=== PATIENT | female | born 1990 | race Caucasian/White ===

== ENCOUNTER 2016-10-12 15:32 | Emergency (ER) | payer MEDICAID, OTHER ==
[2016-10-12 16:02] VITALS: BP 131/87
[2016-10-12] MEDS ORDERED: Ibuprofen TAB* 600 MG PO ONE (16:09)
--- NOTE | 2016-10-12 16:17 | UC ---
Lower Extremity/Ankle HPI - HPI Summary HPI Summary: 26 yo female fell going down stairs and injured right foot just prior to coming in unable to bear wt denies other injury - History of Current Complaint Chief Complaint: UCLowerExtremity Stated Complaint: RIGHT ANKLE INJURY S/P FALL Time Seen by Provider: 10/12/16 16:05 Hx Obtained From: Patient Hx Last Menstrual Period: 09/23/16 Onset/Duration: Sudden Onset Severity Initially: Moderate Severity Currently: Moderate Pain Intensity: 3 - worse with attempts to wt bear Pain Scale Used: 0-10 Numeric Aggravating Factor(s): Standing, Ambulation Alleviating Factor(s): Rest Able to Bear Weight: No - Allergies/Home Medications Allergies/Adverse Reactions: Allergies Allergy/AdvReac Type Severity Reaction Status Date / Time No Known Allergies Allergy Verified 08/29/16 09:57 PMH/Surg Hx/FS Hx/Imm Hx Previously Healthy: Yes Endocrine History Of: Denies: Diabetes Cardiovascular History Of: Denies: Hypertension, Pacemaker/ICD GI/ History Of: Denies: Renal Disease - Surgical History Surgical History: Yes Surgery Procedure, Year, and Place: c section x 3, T&A, WISDOM TEETH - Family History Known Family History: Positive: Respiratory Disease - Social History Alcohol Use: None Substance Use Type: None Smoking Status (MU): Never Smoked Tobacco Review of Systems Constitutional: Negative Skin: Negative Eyes: Negative ENT: Negative Respiratory: Negative Cardiovascular: Negative Gastrointestinal: Negative Genitourinary: Negative Motor: Negative Neurovascular: Negative Musculoskeletal: Arthralgia Neurological: Negative Psychological: Negative All Other Systems Reviewed And Are Negative: Yes Physical Exam Triage Information Reviewed: Yes Appearance: Well-Appearing, No Pain Distress, Well-Nourished Vital Signs: Initial Vital Signs Temp 99.5 F 10/12/16 15:59 Pulse 103 10/12/16 15:59 Resp 14 10/12/16 15:59 BP 131/87 10/12/16 15:59 Pulse Ox 100 10/12/16 15:59 Vital Signs Reviewed: Yes Eyes: Positive: Conjunctiva Clear ENT: Positive: Hearing grossly normal. Negative: Nasal congestion, Nasal drainage, Trismus Neck: Positive: Supple, Nontender Respiratory: Positive: Lungs clear, Normal breath sounds Cardiovascular: Positive: RRR, No Murmur Abdomen Description: Positive: Nontender, No Organomegaly Musculoskeletal: Positive: ROM Intact, No Edema Neurological: Positive: Alert Psychological Exam: Normal Skin Exam: Normal Lower Extremity Course/Dx - Course Course Of Treatment: patient and advised of need to f/u with ortho incase this needs pinning. NON WT BEARING - Differential Dx/Diagnosis Provider Diagnoses: segmental fracture of right 5th Metatarsal Discharge - Discharge Plan Condition: Stable Disposition: HOME Prescriptions: HYDROcodone/ACETAMIN 5-325 MG* [[place] 5-325 TAB*] 1 tab PO Q4H PRN #15 tab MDD 5 PRN Reason: Pain Ibuprofen TAB* [Motrin TAB* 800 MG] 800 mg PO Q6H PRN #40 tab PRN Reason: Pain Patient Education Materials: Foot Fracture in Adults (ED) Referrals: Kailash Patel MD [Medical Doctor] - 3 Days Additional Instructions: rest elevate ice reid CAM boot crutches with non wt bearing Images Feet (Multiple View): 1 - tender/swollen
--- NOTE | 2016-10-12 16:33 | RAD ---
Indication: Injury/fall. RIGHT fifth toe pain extending to the metatarsal. Comparison: None. Technique: AP, lateral, and oblique views RIGHT foot. REPORT AND IMPRESSION: 2 fractures of the fifth metatarsal. Nondisplaced proximal tuberosity avulsion fracture extending to the cuboid fifth metatarsal articulation. Nondisplaced oblique fracture involving the proximal metaphysis through the proximal diaphysis. Overlying soft tissue swelling. Negative for additional fracture. Normal articular alignment.
== END 2016-10-12 16:53 | disposition home or self-care (01) ==
LOC: UCCORT 15:32
DX: S92.351A Displaced fracture of fifth metatarsal bone, right foot, initial encounter for closed fracture (principal); W10.8XXA Fall (on) (from) other stairs and steps, initial encounter
CPT/HCPCS: 99213; A9270-GY; G0463

== ENCOUNTER 2018-02-04 10:27 | Emergency (ER) | payer OTHER ==
[2018-02-04 11:51] VITALS: BP 120/79
--- NOTE | 2018-02-04 12:06 | UC ---
Complaint Female HPI - HPI Summary HPI Summary: urinary burning and frequency x 1 day no fever, no chills, no flank pain - History Of Current Complaint Chief Complaint: UCGU Stated Complaint: URINARY Time Seen by Provider: 02/04/18 11:47 Hx Obtained From: Patient Hx Last Menstrual Period: 01/22/18 Onset/Duration: Gradual Onset, Lasting Days - 1, Still Present Timing: Constant Severity Initially: Moderate Severity Currently: Moderate Pain Intensity: 7 Character: Burning Aggravating Factor(s): Urination Alleviating Factor(s): Nothing Associated Signs And Symptoms: Negative: Fever, Back Pain, Vaginal Bleeding/ Discharge, Vaginal Discharge, Nausea, Vomiting(# Of Episodes =), Genital Swelling, Genital Blisters, Retained Foregin Body (Specify) - Allergies/Home Medications Allergies/Adverse Reactions: Allergies Allergy/AdvReac Type Severity Reaction Status Date / Time No Known Allergies Allergy Verified 02/04/18 11:50 PMH/Surg Hx/FS Hx/Imm Hx Previously Healthy: Yes - Surgical History Surgical History: Yes Surgery Procedure, Year, and Place: c section x 3, Tonsils w/adenoids, WISDOM TEETH - Family History Known Family History: Positive: Respiratory Disease - Social History Alcohol Use: Occasionally Substance Use Type: None Smoking Status (MU): Never Smoked Tobacco Review of Systems Constitutional: Negative Skin: Negative Eyes: Negative ENT: Negative Respiratory: Negative Cardiovascular: Negative Gastrointestinal: Negative Genitourinary: Dysuria, Frequency Is Patient Immunocompromised?: No All Other Systems Reviewed And Are Negative: Yes Physical Exam Triage Information Reviewed: Yes Appearance: Well-Appearing, No Pain Distress, Well-Nourished Vital Signs: Initial Vital Signs Temp 98.8 F 02/04/18 11:44 Pulse 91 02/04/18 11:44 Resp 16 02/04/18 11:44 BP 120/79 02/04/18 11:44 Pulse Ox 100 02/04/18 11:44 Vital Signs Reviewed: Yes Eyes: Positive: Conjunctiva Clear ENT: Positive: Normal ENT inspection, Hearing grossly normal, Pharynx normal, Pharyngeal erythema Neck: Positive: Supple, Nontender, No Lymphadenopathy Respiratory: Positive: Chest non-tender, Lungs clear, Normal breath sounds Cardiovascular: Positive: RRR, No Murmur, Pulses Normal Abdominal Exam: Normal Abdomen Description: Positive: Nontender, Soft. Negative: CVA Tenderness (R), CVA Tenderness (L), Distended, Guarding Bowel Sounds: Positive: Present Skin Exam: Normal Complaint Female Dx - Differential Dx/Diagnosis Provider Diagnoses: uti Discharge - Sign-Out/Discharge Documenting (check all that apply): Discharge/Admit/Transfer - Discharge Plan Condition: Stable Disposition: HOME Prescriptions: Fluconazole 150 MG (NF) [Diflucan 150 mg (NF)] 150 mg PO ONCE #1 tab Sulfamethox/Trimethoprim DS* [Bactrim DS 800/160 TAB*] 1 tab PO BID #14 tab Patient Education Materials: Urinary Tract Infection in Women (DC) Referrals: Nando Oh MD [Primary Care Provider] - If Needed - Billing Disposition and Condition Condition: STABLE Disposition: HOME
--- NOTE | 2018-02-08 07:08 | UC ---
- Progress Note Progress Note: Pt with + Ecoli final culture urine Pt Rx bactrim - resistance No allergies Sent Rx macrobid - please call pt regarding change Aman 02/08/2018 Discharge - Sign-Out/Discharge Documenting (check all that apply): Post-Discharge Follow Up - Discharge Plan Condition: Stable Disposition: HOME Prescriptions: Fluconazole 150 MG (NF) [Diflucan 150 mg (NF)] 150 mg PO ONCE #1 tab Sulfamethox/Trimethoprim DS* [Bactrim DS 800/160 TAB*] 1 tab PO BID #14 tab Patient Education Materials: Urinary Tract Infection in Women (DC) Referrals: Nando Oh MD [Primary Care Provider] - If Needed - Billing Disposition and Condition Condition: STABLE Disposition: HOME
== END 2018-02-04 12:13 | disposition home or self-care (01) ==
LOC: UCCORT 10:27
DX: N39.0 Urinary tract infection, site not specified (principal)
CPT/HCPCS: 81003; 87077; 87086; 87186; 99212; G0463

== ENCOUNTER 2018-03-10 17:39 | Emergency (ER) | payer OTHER ==
[2018-03-10 18:55] VITALS: BP 129/89
--- NOTE | 2018-03-10 19:31 | UC ---
Upper Extremity HPI - HPI Summary HPI Summary: Pt c/o of bilateral forearm/wrist numbness and pain that began "weeks ago" and is worse at night after "working all day". Pt states that repositioning her arms can help improve the pain. Pt also c/o of "lumps" in mid bialteral forearms. 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 Denies injury or neck pain or injury. - History of Current Complaint Hx Obtained From: Patient Hx Last Menstrual Period: 02/20/18 has IUD ?: No Onset/Duration: Gradual Onset, Lasting Weeks, Still Present, Worse Since - onset Severity Initially: Mild Severity Currently: Moderate Pain Intensity: 5 Location Of Pain: Is Discrete @ - bilateral forearms Character: Dull, Aching, Burning Aggravating Factor(s): Movement Alleviating Factor(s): Rest Associated Signs And Symptoms: Positive: Numbness/Tingling Related History: Dominant Hand Right - Risk Factors Non-Orthopedic Risk Factor: Negative Septic Arthritis Risk Factor: Negative Compartment Syndrome Risk Factors: Paresthesias <Martha Stauffer NP - Last Filed: 03/10/18 19:35> <Ravi Scott - Last Filed: 03/10/18 20:35> - History of Current Complaint Chief Complaint: UCUpperExtremity Stated Complaint: BILATERAL HAND NUMBNESS Time Seen by Provider: 03/10/18 19:04 - Allergies/Home Medications Allergies/Adverse Reactions: Allergies Allergy/AdvReac Type Severity Reaction Status Date / Time No Known Allergies Allergy Verified 03/10/18 18:55 Home Medications: Home Medications Copper (Iud) [Paragard IUD] 1 unit IU DAILY 03/10/18 [History Confirmed 03/10/18 ] PMH/Surg Hx/FS Hx/Imm Hx Previously Healthy: Yes - Surgical History Surgical History: Yes Surgery Procedure, Year, and Place: c section x 3, Tonsils w/adenoids, WISDOM TEETH - Family History Known Family History: Positive: Respiratory Disease - Social History Occupation: Employed Full-time Lives: With Family Alcohol Use: Daily Alcohol Amount: 2 drinks Substance Use Type: None Smoking Status (MU): Never Smoked Tobacco Have You Smoked in the Last Year: No <Martha Stauffer NP - Last Filed: 03/10/18 19:35> Review of Systems Constitutional: Negative Skin: Negative Eyes: Negative ENT: Negative Respiratory: Negative Cardiovascular: Negative Gastrointestinal: Negative Genitourinary: Negative Motor: Negative Neurovascular: Negative Musculoskeletal: Myalgia - bilateral forearms Neurological: Negative Psychological: Negative Is Patient Immunocompromised?: No All Other Systems Reviewed And Are Negative: Yes <Martha Stauffer NP Last Filed: 03/10/18 19:35> Physical Exam Triage Information Reviewed: Yes Appearance: Well-Appearing Vital Signs: Initial Vital Signs Temp 98.4 F 03/10/18 18:49 Pulse 76 03/10/18 18:49 Resp 16 03/10/18 18:49 BP 129/89 03/10/18 18:49 Pulse Ox 100 03/10/18 18:49 Eye Exam: Normal ENT: Positive: Hearing grossly normal Neck exam: Normal Neck: Positive: Supple, Nontender Respiratory: Positive: No respiratory distress Musculoskeletal Exam: Other Musculoskeletal: Positive: Other: - medial nerve tenderness bilateral Neurological Exam: Normal Psychological Exam: Normal Skin Exam: Normal <Martha Stauffer NP Last Filed: 03/10/18 19:35> Vital Signs: Initial Vital Signs Temp 98.4 F 03/10/18 18:49 Pulse 76 03/10/18 18:49 Resp 16 03/10/18 18:49 BP 129/89 03/10/18 18:49 Pulse Ox 100 03/10/18 18:49 <Ravi Scott - Last Filed: 03/10/18 20:35> Upper Extremity Course/Dx - Differential Dx/Diagnosis Differential Diagnosis/HQI/PQRI: Other - carpal tunnel bilateral Provider Diagnoses: carpal tunnel bilateral <Martha Stauffer NP Last Filed: 03/10/18 19:35> Discharge - Sign-Out/Discharge Documenting (check all that apply): Discharge/Admit/Transfer - Billing Disposition and Condition Condition: STABLE Disposition: Home <Martha Stauffer NP Last Filed: 03/10/18 19:35> - Billing Disposition and Condition Condition: STABLE Disposition: Home <Ravi Scott - Last Filed: 03/10/18 20:35> - Discharge Plan Condition: Stable Disposition: HOME Patient Education Materials: Paresthesia (ED), Arm Pain (ED) Referrals: Nando Oh MD [Primary Care Provider] - Malissa Gates MD [Medical Doctor] - As Soon As Possible Additional Instructions: Per institutional requirements, I have reviewed the chart, however, I was not consulted specifically or made aware of this patient by the above midlevel provider. I did not personally evaluate, interact with , or disposition this patient.
== END 2018-03-10 19:39 | disposition home or self-care (01) ==
LOC: UCCORT 17:39
DX: G56.03 Carpal tunnel syndrome, bilateral upper limbs (principal)
CPT/HCPCS: 99211; G0463

== ENCOUNTER 2018-03-24 17:01 | Emergency (ER) | payer OTHER ==
[2018-03-24 17:37] VITALS: BP 130/75
--- NOTE | 2018-03-24 18:01 | UC ---
Complaint Female HPI - HPI Summary HPI Summary: c/o frequency and urgency for the past week with low abdominal discomfort. Has been taking azo several days ago. States this is the second UTI she has had. Denies flank pain, chills or fever. PMH unremarkable. - History Of Current Complaint Chief Complaint: UCGU Stated Complaint: URINARY Time Seen by Provider: 03/24/18 17:35 Hx Obtained From: Patient Hx Last Menstrual Period: 03/17/18 ?: No Onset/Duration: Gradual Onset, Lasting Days Timing: Intermittent, Lasting Minutes Severity Initially: Mild Severity Currently: Moderate Pain Intensity: 5 Character: Burning Aggravating Factor(s): Urination Alleviating Factor(s): Meds Associated Signs And Symptoms: Positive: Negative - Risk Factors Ectopic Risk Factor: Negative Ovarian Torsion Risk Factor: Negative - Allergies/Home Medications Allergies/Adverse Reactions: Allergies Allergy/AdvReac Type Severity Reaction Status Date / Time No Known Allergies Allergy Verified 03/21/18 09:49 Home Medications: Home Medications Cranberry Fruit Concentrate [Azo Cranberry] 1 each PO DAILY 03/24/18 [History Confirmed 03/24/18] Ibuprofen 1,000 mg PO Q8HR 03/24/18 [History Confirmed 03/24/18] PMH/Surg Hx/FS Hx/Imm Hx Previously Healthy: Yes - Surgical History Surgical History: Yes Surgery Procedure, Year, and Place: c section x 3, Tonsils w/adenoids, WISDOM TEETH - Family History Known Family History: Positive: Hypertension, Respiratory Disease - Social History Alcohol Use: Occasionally Alcohol Amount: 2 drinks Substance Use Type: None Smoking Status (MU): Never Smoked Tobacco Have You Smoked in the Last Year: No Review of Systems Genitourinary: Dysuria, Frequency, Urgency All Other Systems Reviewed And Are Negative: Yes Physical Exam Triage Information Reviewed: Yes Appearance: Well-Appearing, No Pain Distress, Well-Nourished Vital Signs: Initial Vital Signs Temp 98.7 F 03/24/18 17:33 Pulse 82 03/24/18 17:33 Resp 16 03/24/18 17:33 BP 130/75 03/24/18 17:33 Pulse Ox 100 03/24/18 17:33 Vital Signs Reviewed: Yes Eyes: Positive: Conjunctiva Clear ENT: Positive: Hearing grossly normal Neck: Positive: Supple, Nontender, No Lymphadenopathy Respiratory: Positive: Chest non-tender, Lungs clear, Normal breath sounds, No respiratory distress Cardiovascular: Positive: RRR, No Murmur, Pulses Normal, Brisk Capillary Refill Abdomen Description: Positive: No Organomegaly, Soft, Other: - equivocal [place] Bowel Sounds: Positive: Present Complaint Female Dx - Course Course Of Treatment: Start Macrobid as prescribed, generous oral hydration, f/u with PCP for BP monitoring - Differential Dx/Diagnosis Provider Diagnoses: Pre Hypertension. UTI Discharge - Sign-Out/Discharge Documenting (check all that apply): Discharge/Admit/Transfer - Discharge Plan Condition: Stable Disposition: HOME Prescriptions: Nitrofurantoin Monohyd/M-Cryst [Macrobid 100 mg Capsule] 100 mg PO BID 7 Days # 14 cap Patient Education Materials: Nitrofurantoin Combination (By mouth), Urinary Tract Infection in Women (ED), Hypertension (ED) Referrals: Nando Oh MD [Primary Care Provider] - - Billing Disposition and Condition Condition: STABLE Disposition: Home
== END 2018-03-24 18:06 | disposition home or self-care (01) ==
LOC: UCCORT 17:01
DX: R03.0 Elevated blood-pressure reading, without diagnosis of hypertension (principal); N39.0 Urinary tract infection, site not specified; B96.20 Unspecified Escherichia coli [E. coli] as the cause of diseases classified elsewhere; Z16.29 Resistance to other single specified antibiotic; Z87.440 Personal history of urinary (tract) infections
CPT/HCPCS: 81003; 87077; 87086; 87186; 99212; G0463

== ENCOUNTER 2018-03-28 08:14 | Day surgery (SDC) | payer OTHER ==
[~2018-03-28 08:14] MED LIST: Buffered Lidocaine 0.9% SYRIN* 5 ML/SYR SYRINGE INTRADERM ONE; Dexamethasone IV* 4 MG/ML 1 ML (4 MG) ONE; Dexamethasone TAB* 4 MG PO ONE; Famotidine IV* 10 MG/ML 2 ML (20 mg) IV ONE; Famotidine IV* 10 MG/ML 2 ML (20 mg) ONE; Lidocaine 1%* 5 ML VIAL ONE
[2018-03-28] MEDS ORDERED: Dexamethasone IV* 4 MG/ML 1 ML (4 MG) ONE (08:24)
[2018-03-28] MEDS ORDERED: Famotidine IV* 10 MG/ML 2 ML (20 mg) ONE (08:24)
[2018-03-28] MEDS ORDERED: Naloxone* 0.4 MG/ML 1 ML VIAL IV PRN (09:11)
[2018-03-28 10:19] VITALS: BP 112/68
--- NOTE | 2018-03-28 22:06 | OP ---
DATE OF OPERATION: 03/28/18 [facility] DATE OF : 86 SURGEON: Dr. Gates [facility] REP: OKSANA Perez ANESTHESIA: Local MAC. PRE-OP DIAGNOSIS: Right carpal tunnel syndrome. POST-OP DIAGNOSIS: Right carpal tunnel syndrome. OPERATIVE PROCEDURE: Right carpal tunnel release. ESTIMATED BLOOD LOSS: 0. TOURNIQUET TIME: About 5 minutes. INDICATION FOR PROCEDURE: Leatha is a 27-year-old female with numbness and tingling in the median nerve distribution of her right hand. She presents for a right carpal tunnel release. DESCRIPTION OF PROCEDURE: The patient was brought to the operating room, was given a sedation anesthetic, and a local infiltration of 10 cc of 1% plain lidocaine in the palm of her right hand. The skin of her right hand and forearm was prepped and draped in the usual sterile fashion. The hand and forearm were exsanguinated and the tourniquet elevated to 250 mmHg. A longitudinal incision was made in the palm in line with the ring finger. We dissected through the subcutaneous tissue down to the transverse carpal ligament. The ligament was divided sharply with the knife and then more proximally with the scissors. The nerve was dissected free from the surrounding tissue and there was an area of moderate compression at the mid portion of the ligament. The wound was irrigated and the skin edges reapproximated with 4-0 nylon suture. The wound was dressed with Xeroform, 4x4 , Webril, and an [place] wrap. The patient tolerated the procedure well and was brought to the recovery room in good condition. [id number]/[facility] #: [id number] BRENDAN
== END 2018-03-28 10:38 | disposition home or self-care (01) ==
LOC: OREAST 08:14
PROVIDERS: ATTEND Orthopaedic Surgery
DX: G56.01 Carpal tunnel syndrome, right upper limb (principal); K21.9 Gastro-esophageal reflux disease without esophagitis; F41.8 Other specified anxiety disorders; D64.9 Anemia, unspecified
CPT/HCPCS: J1100; J2250; J2704; J3010

== ENCOUNTER 2018-09-23 11:56 | Emergency (ER) | payer OTHER ==
[2018-09-23 12:49] VITALS: BP 134/79
--- NOTE | 2018-09-23 13:38 | UC ---
Complaint Female HPI - HPI Summary HPI Summary: dysuria x 2 weeks, vaginal irritation , mild discharge, possible yeast infection, used Monistat with some improvements vaginal itching , no fever, no chills, no flank pain - History Of Current Complaint Chief Complaint: UCGU Stated Complaint: PERSONAL Time Seen by Provider: 09/23/18 12:44 Hx Obtained From: Patient Hx Last Menstrual Period: 09/18/18 ?: No Onset/Duration: Gradual Onset, Lasting Days - 14, Still Present Timing: Constant Severity Initially: Moderate Severity Currently: Moderate Pain Intensity: 0 Character: Not Applicable Aggravating Factor(s): [place], Urination Alleviating Factor(s): Nothing Associated Signs And Symptoms: Positive: Vaginal Discharge. Negative: Fever, Back Pain, Vaginal Bleeding/Discharge, Nausea, Vomiting(# Of Episodes =), Genital Swelling, Genital Blisters, Retained Foregin Body (Specify) - Allergies/Home Medications Allergies/Adverse Reactions: Allergies Allergy/AdvReac Type Severity Reaction Status Date / Time No Known Allergies Allergy Verified 09/23/18 12:42 PMH/Surg Hx/FS Hx/Imm Hx Previously Healthy: Yes - Surgical History Surgical History: Yes Surgery Procedure, Year, and Place: c section x 3, Tonsils w/adenoids, WISDOM TEETH - Family History Known Family History: Positive: Hypertension, Respiratory Disease - Social History Alcohol Use: Occasionally Alcohol Amount: 2 drinks Substance Use Type: None Smoking Status (MU): Never Smoked Tobacco Have You Smoked in the Last Year: No Review of Systems All Other Systems Reviewed And Are Negative: Yes Constitutional: Positive: Negative Skin: Positive: Negative Eyes: Positive: Negative ENT: Positive: Negative Respiratory: Positive: Negative Is Patient Immunocompromised?: No Physical Exam Triage Information Reviewed: Yes Appearance: Well-Appearing, No Pain Distress, Well-Nourished Vital Signs: Initial Vital Signs Temp 98 F 09/23/18 12:44 Pulse 82 09/23/18 12:44 Resp 16 09/23/18 12:44 BP 134/79 09/23/18 12:44 Pulse Ox 100 09/23/18 12:44 Vital Signs Reviewed: Yes Eye Exam: Normal Eyes: Positive: Conjunctiva Clear ENT Exam: Normal ENT: Positive: Normal ENT inspection, Hearing grossly normal, Pharynx normal Neck exam: Normal Neck: Positive: Supple, Nontender, No Lymphadenopathy Respiratory: Positive: Chest non-tender, Lungs clear, Normal breath sounds Cardiovascular: Positive: RRR, No Murmur, Pulses Normal Abdominal Exam: Normal Abdomen Description: Positive: Nontender, No Organomegaly, Soft. Negative: CVA Tenderness (R), CVA Tenderness (L), Distended, Guarding Bowel Sounds: Positive: Present Complaint Female Dx - Differential Dx/Diagnosis Provider Diagnosis: Dysuria Discharge - Sign-Out/Discharge Documenting (check all that apply): Patient Departure All imaging exams completed and their final reports reviewed: No Studies - Discharge Plan Condition: Stable Disposition: HOME Prescriptions: Fluconazole 150 MG TAB* [Diflucan 150 MG TAB*] 150 mg PO UC ONCE #2 tablet Sulfamethox/Trimethoprim DS* [Bactrim DS 800/160 TAB*] 1 tab PO BID #14 tab Patient Education Materials: Yeast Infection (ED), Dysuria (ED) Referrals: Nando Oh MD [Primary Care Provider] - 7 Days - Billing Disposition and Condition Condition: STABLE Disposition: Home
== END 2018-09-23 13:43 | disposition home or self-care (01) ==
LOC: UCCORT 11:56
DX: R30.0 Dysuria (principal)
CPT/HCPCS: 81003; 87077; 87086; 99212; G0463

== ENCOUNTER 2018-12-01 09:29 | Emergency (ER) | payer OTHER ==
[2018-12-01 11:21] VITALS: BP 126/84
--- NOTE | 2018-12-01 12:18 | UC ---
Hand/Wrist HPI - HPI Summary HPI Summary: Patient fell onto her outstretched left hand approximately 2 weeks ago. She states she has had continued pain more over the distal ulna. She does have a history of carpal tunnel syndrome which is sometimes aggravated. - History Of Current Complaint Chief Complaint: UCUpperExtremity Stated Complaint: LEFT WRIST/ARM PAIN Time Seen by Provider: 12/01/18 11:27 Hx Obtained From: Patient Hx Last Menstrual Period: Paragard ?: No Onset/Duration: Sudden Onset Severity Initially: Mild Severity Currently: Mild - Approximately 2 weeks ago Pain Intensity: 5 Character Of Pain: Aching - Patient also has a history of carpal tunnel syndrome for which she has had surgery in the right wrist but not left. Aggravating Factor(s): Internal/External Rotation Alleviating Factor(s): Nothing Associated Signs And Symptoms: Positive: Negative Related History: Dominant Hand Right - Allergies/Home Medications Allergies/Adverse Reactions: Allergies Allergy/AdvReac Type Severity Reaction Status Date / Time No Known Allergies Allergy Verified 09/23/18 12:42 Home Medications: Home Medications Ibuprofen TAB* [Advil TAB*] 800 mg PO Q8H PRN 12/01/18 [History Confirmed ] PMH/Surg Hx/FS Hx/Imm Hx - Additional Past Medical History Additional PMH: Patient has a past medical history of carpal tunnel syndrome in both wrists however she has had surgery on the right wrist but not the left. Previously Healthy: Yes - Surgical History Surgical History: Yes Surgery Procedure, Year, and Place: c section x 3, Tonsils w/adenoids, WISDOM TEETH - Family History Known Family History: Positive: Hypertension, Respiratory Disease - Social History Occupation: Employed Full-time Lives: With Family Alcohol Use: Occasionally Alcohol Amount: 2 drinks Substance Use Type: None Smoking Status (MU): Never Smoked Tobacco Have You Smoked in the Last Year: No Review of Systems All Other Systems Reviewed And Are Negative: Yes Constitutional: Positive: Negative - No recent illness Neurovascular: Positive: Negative Musculoskeletal: Positive: Other: - Mild tenderness with pronation and supination of the left wrist. No swelling noted. Neurological: Positive: Negative Psychological: Positive: Negative Is Patient Immunocompromised?: No Physical Exam Triage Information Reviewed: Yes Appearance: Well-Appearing, No Pain Distress, Well-Nourished Vital Signs: Initial Vital Signs Temp 98 F 12/01/18 11:15 Pulse 73 12/01/18 11:15 Resp 16 12/01/18 11:15 BP 126/84 12/01/18 11:15 Pulse Ox 100 12/01/18 11:15 Vital Signs Reviewed: Yes Eye Exam: Normal Musculoskeletal: Positive: Strength Intact - Good elbow and shoulder stability. , ROM Intact, No Edema - No erythema, bruising, deformity or swelling. Full range of motion with minimal pain on supination and pronation of the left wrist. Neurological Exam: Normal Neurological: Positive: Alert, Muscle Tone Normal Psychological Exam: Normal Skin Exam: Normal Hand/Wrist Course/Dx - Course Course Of Treatment: Patient comfortable here. X-ray was negative for fracture. Cock-up splint was applied for comfort - Differential Dx/Diagnosis Differential Diagnosis/HQI/PQRI: Carpal Tunnel Syndrome, Sprain Provider Diagnosis: Left wrist sprain Discharge - Sign-Out/Discharge Documenting (check all that apply): Patient Departure All imaging exams completed and their final reports reviewed: Yes - Discharge Plan Condition: Good Disposition: HOME Patient Education Materials: Wrist Sprain (ED) Referrals: Nando Oh MD [Primary Care Provider] - Additional Instructions: Use the wrist splint for comfort. If you have continued pain over the next week follow up with an orthopedist. You may take Motrin every 6-8 hours for pain. Elevate as much as possible. You may try applying heat to the area and avoid movements that cause pain. - Billing Disposition and Condition Condition: GOOD Disposition: Home - Attestation Statements Provider Attestation: I was available for consult. This patient was seen by the RONN. The patient was not presented to, seen by, or examined by me. -Aman
== END 2018-12-01 12:52 | disposition home or self-care (01) ==
LOC: UCCORT 09:29
DX: S63.502A Unspecified sprain of left wrist, initial encounter (principal); W19.XXXA Unspecified fall, initial encounter; Y92.9 Unspecified place or not applicable
CPT/HCPCS: 99212; G0463

== ENCOUNTER 2019-03-31 12:25 | Emergency (ER) | payer OTHER ==
[2019-03-31 13:22] VITALS: BP 120/66
--- NOTE | 2019-03-31 13:34 | UC ---
Complaint Female HPI - HPI Summary HPI Summary: urinary frequency / urgency x 3 days dysuria , no fever, no chills , no flank pain - History Of Current Complaint Chief Complaint: UCGU Stated Complaint: URINARY Time Seen by Provider: 03/31/19 13:04 Hx Obtained From: Patient Hx Last Menstrual Period: 03/28/19 ?: No Onset/Duration: Gradual Onset, Lasting Days - 3, Still Present Timing: Constant Severity Initially: Moderate Severity Currently: Moderate Pain Intensity: 4 Character: Burning Aggravating Factor(s): Urination Alleviating Factor(s): Nothing Associated Signs And Symptoms: Negative: Fever, Back Pain, Vaginal Bleeding/ Discharge, Vaginal Discharge, Nausea, Vomiting(# Of Episodes =), Genital Swelling, Genital Blisters, Retained Foregin Body (Specify) - Allergies/Home Medications Allergies/Adverse Reactions: Allergies Allergy/AdvReac Type Severity Reaction Status Date / Time No Known Allergies Allergy Verified 03/31/19 13:22 PMH/Surg Hx/FS Hx/Imm Hx Previously Healthy: Yes - Surgical History Surgical History: Yes Surgery Procedure, Year, and Place: c section x 3, Tonsils w/adenoids, WISDOM TEETH - Family History Known Family History: Positive: Hypertension, Respiratory Disease - Social History Alcohol Use: Occasionally Alcohol Amount: 2 drinks Substance Use Type: None Smoking Status (MU): Never Smoked Tobacco Have You Smoked in the Last Year: No Review of Systems All Other Systems Reviewed And Are Negative: Yes Constitutional: Positive: Negative Skin: Positive: Negative Eyes: Positive: Negative ENT: Positive: Negative Respiratory: Positive: Negative Cardiovascular: Positive: Negative Genitourinary: Positive: Dysuria, Frequency, Urgency Is Patient Immunocompromised?: No Physical Exam Triage Information Reviewed: Yes Appearance: Well-Appearing, No Pain Distress, Well-Nourished Vital Signs: Initial Vital Signs Temp 98.2 F 03/31/19 13:14 Pulse 78 03/31/19 13:14 Resp 16 03/31/19 13:14 BP 120/66 03/31/19 13:14 Pulse Ox 100 03/31/19 13:14 Vital Signs Reviewed: Yes Eye Exam: Normal Eyes: Positive: Conjunctiva Clear ENT: Positive: Normal ENT inspection, Hearing grossly normal, Pharynx normal Neck exam: Normal Neck: Positive: Supple, Nontender, No Lymphadenopathy Respiratory: Positive: Chest non-tender, Lungs clear, Normal breath sounds Cardiovascular: Positive: RRR, No Murmur, Pulses Normal Abdomen Description: Positive: Nontender, Soft. Negative: CVA Tenderness (R), CVA Tenderness (L), Distended, Guarding Bowel Sounds: Positive: Present Complaint Female Dx - Differential Dx/Diagnosis Provider Diagnosis: UTI (urinary tract infection) Discharge - Sign-Out/Discharge Documenting (check all that apply): Patient Departure All imaging exams completed and their final reports reviewed: No Studies - Discharge Plan Condition: Stable Disposition: HOME Prescriptions: Sulfamethox/Trimethoprim DS* [Bactrim DS 800/160 TAB*] 1 tab PO BID #10 tab Patient Education Materials: Urinary Tract Infection in Women (DC) Referrals: Nando Oh MD [Primary Care Provider] - If Needed - Billing Disposition and Condition Condition: STABLE Disposition: Home
== END 2019-03-31 13:41 | disposition home or self-care (01) ==
LOC: UCCORT 12:25
DX: N39.0 Urinary tract infection, site not specified (principal)
CPT/HCPCS: 81003; 87077; 87086; 87186; 99212; G0463